=== PATIENT | female | born 1945 | race Caucasian/White ===

== ENCOUNTER 2016-10-24 07:32 | Emergency (ER) | payer MEDICARE, OTHER ==
--- NOTE | ~2016-10-24 | CT2 ---
[facility] A Service of [facility] RADIOLOGY TEXT RESULTS PATIENT: SHERMAN BARR LOCATION: [facility] : 45 UNIT #: [id number] AGE: [address]: Buster Matthews MD SEX: F ORDER DR: [id number] [facility] [address] [place], [place] [address] [id number] MR#: [id number] Acc #: [id number] NAME: SHERMAN BARR : 1945 SEX: F STUDY DATE/TIME: 10/24/2016 9:18 UNIT: [facility] ROOM: STUDY DESCRIPTION: CT Abd and Pelv W Cont Attending Physician: Home Matthews M.D. Ordering Physician: Ed Doctor [id number] [facility] Primary Care Physician: Gina Nash M.D. MEDICAL IMAGING REPORT This report is preliminary unless electronic signature is present EXAM CT abdomen and pelvis INDICATION Lower abdominal pain for 1 day. Left lower quadrant and right lower quadrant pain. TECHNIQUE CT abdomen and pelvis with p.o. and IV contrast (100 mL Isovue-370 IV contrast). Coronal and sagittal reconstructions were obtained. This CT exam was performed with one or more of the following radiation dose reduction techniques: automatic exposure control, adjustment of mA and/or kV according to patient size, and iterative reconstruction. COMPARISON None available. FINDINGS ABDOMEN: There are a few cysts in the periphery of the right hepatic lobe. No intrahepatic or extrahepatic biliary dilatation. The gallbladder is surgically absent. The pancreas, spleen, and adrenal glands are within normal limits. There is a small 1.0 mm calculus at the distal left ureter at the UVJ. There is some mild wall thickening and abnormal enhancement at the UVJ. This may simply be reactive, however followup study should be performed. This results in a mild left hydronephrosis. No remaining renal calculi are identified. The bowel is not dilated. There is colonic diverticulosis. The abdominal aorta is normal in caliber. PELVIS: The bladder is unremarkable. There is no enlarged pelvic or inguinal lymph nodes. No acute osseous abnormalities. [facility] A Service of [facility] RADIOLOGY TEXT RESULTS PATIENT: SHERMAN BARR LOCATION: [facility] : 45 UNIT #: [id number] AGE: [address]: Buster Matthews MD SEX: F ORDER DR: IMPRESSION 1. 2.0 mm calculus in the distal left ureter results in a mild left hydronephrosis. 2. Wall thickening and enhancement of the distal ureter at the UVJ. This may simply be reactive due to the distal obstructing stone, however I would recommend a followup CT scan or followup cystoscopy to evaluate this area and differentiate reactive wall thickening from possible urothelial malignancy. Dictated by... Bon Gardner M.D. THIS IS AN ELECTRONICALLY VERIFIED REPORT Bon Gardner M.D. at 10/24/2016 11:32 AM Adri TD: 10/24/2016 10:28 JOB #: [id number] MEDICAL IMAGING REPORT Page 1 of 1 COPY
[2016-10-24 06:59] LABS: URINE SOURCE CLEAN CATCH
[2016-10-24 07:18] LABS: URINE APPEARANCE CLEAR; URINE BLOOD TRACE (NEG); URINE COLOR ORANGE; URINE GLUCOSE NEG (NEG); URINE KETONE NEG (NEG); URINE LEUKOCYTE ESTERASE 1+ (NEG); URINE PROTEIN 1+ (NEG); URINE SPECIFIC GRAVITY 1.015 (1.003-1.035)
[2016-10-24 07:21] LABS: U HYALINE CASTS AUWI 0-2 /[LPF]; URINE SQUAMOUS EPITHELIAL CELL NONE SEEN /[HPF]; UWBCS1 AUWI 0-2 (0-5)
[~2016-10-24 07:32] MED LIST: ACETAMINOPHEN PO; ALENDRONATE SOD35 MG PO; ALL DAY ALLERGY10 M1 PO; ASPIRIN EC81 M1 PO; HARD NAILS2500 MCG PO; METOPROLOL TAR25 MG PO; METROGEL60 GM; NITROSTAT0.4 MG SL; PRAVASTATIN SOD40 MG PO
[2016-10-24 07:51] LABS: URINE BILIRUBIN NEG (NEG)
[2016-10-24 07:52] LABS: URINE NITRATE POS (NEG)
[2016-10-24 07:53] LABS: URINE BACTERIA AUWI NEG (NEGATIVE)
[2016-10-24 07:55] LABS: CULTURE INDICATED? YES
[2016-10-24 08:06] LABS: BASOPHIL# 0.1 X10e3 (0-0.3); BASOPHIL% 0.7 % (0-2.5); EOSINOPHIL# 0.1 X10e3 (0-0.7); EOSINOPHIL% 1.1 % (0.0-7.0); HEMATOCRIT 37.6 % (35.0-45.0); HEMOGLOBIN 12.5 gm/dL (12.0-16.0); LYMPHOCYTE# 1.7 X10e3 (1.0-3.5); LYMPHOCYTE% 17.6 % (17.0-45.0); MEAN CELL VOLUME 91.8 FL (83-96); MEAN CORPUSCULAR HEMOGLOBIN 30.4 PG (28-34); MEAN CORPUSCULAR HGB CONC 33.1 g/dL (30-36); MONOCYTE# 0.5 X10e3 (0-1.0); MONOCYTE% 5.2 % (3.0-12.0); NEUTROPHIL# 7.2 X10e3 (1.5-7.1); NEUTROPHIL% 75.4 % (40-75); PLATELET COUNT 221 X10e3 (140-420); RED CELL DISTRIBUTION WIDTH 14.3 % (11.0-15.5); WHITE BLOOD COUNT 9.5 X10e3 (4.0-10.5)
[2016-10-24 08:11] LABS: DIFF IND NO
[2016-10-24 08:31] LABS: ALBUMIN SERUM 4.1 g/dL (3.5-5.0); BILIRUBIN, DIRECT 0.1 mg/dL (0.0-0.2); BILIRUBIN,INDIRECT 0.7 mg/dL (0.0-0.9); BILIRUBIN,TOTAL 0.8 mg/dL (0.2-2.0); BUN/CREATININE RATIO 34.28; CALCIUM SERUM 9.2 mg/dL (8.4-10.2); CREATININE SERUM 0.7 mg/dL (0.6-1.4); GLOM FILT RATE Estimated 87.8 mL/min (>60); POTASSIUM 3.4 mmol/L (3.5-5.1); PROTEIN TOTAL SERUM 6.2 g/dL (6.0-8.3)
== END 2016-10-24 11:20 | disposition home or self-care (01) ==
LOC: CED 07:32
PROVIDERS: Emergency Medicine
DX: N13.2 Hydronephrosis with renal and ureteral calculous obstruction (principal); Z90.49 Acquired absence of other specified parts of digestive tract; Z90.710 Acquired absence of both cervix and uterus; Z88.2 Allergy status to sulfonamides; Z88.1 Allergy status to other antibiotic agents; Z79.899 Other long term (current) drug therapy
CPT/HCPCS: 36415; 74177; 80048; 80076; 81003; 82150; 83690; 85025; 99284; Q9967